=== PATIENT | male | born 1975 | race Hispanic/Latino ===

== ENCOUNTER → 2018-06-25 | Day surgery (SDC) | payer OTHER ==
[~2018-06-25] MED LIST: AMLODIPINE BESY10 MG PO; BIOFLEX TABLET1 EACH; CLARITIN-D 241 EACH PO; DAYQUIL; FENTANYL CITRATE/PF 100MCG/2 ML INJ ONE; FLONASE; GLUCOSAMINE1000 MG; LISINOPRIL10 MG PO; MIDAZOLAM HCL 2 MG/2 ML VIAL ONE; MUCINEX DM ER1 EACH PO; PROPOFOL IV EMULSION 10 MG/ML 50 ML VIAL ONE; [UNRECOGNIZED DRUG - OTHER]
[2018-06-25 09:30] VITALS: BP 122/88
--- NOTE | 2018-06-25 15:50 | Operative Report ---
DATE OF PROCEDURE: 06/25/2018 SURGEON: Thien Gamboa MD PROCEDURE: Esophagogastroduodenoscopy with esophageal dilatation and biopsies. INDICATIONS FOR EGD: Acid reflux, dysphagia, history of H. pylori. MEDICATION: The patient was done under MAC. Please see anesthesiologist's note. PROCEDURE IN DETAIL: With the patient in left lateral decubitus position, flexible fiberoptic Olympus gastroscope was introduced into the esophagus under direct visualization without any difficulty. There was some patchy erythema noted in distal esophagus. The esophagus was dilated to size 52-[place] Cont[place]ras. The scope was then advanced with ease into the stomach. Mucosa overlying the antrum and the body revealed some diffuse erythema and moderate edema and biopsies were obtained and sent to stain for H. pylori. Pylorus was of normal contour and shape, was intubated with ease and the scope was advanced all the way to the second portion of the duodenum. Biopsies were obtained from the proximal second portion and the duodenal bulb to rule out sprue. The scope was then withdrawn back into the stomach and retroflexed and mucosa overlying the fundus and cardia appeared to be within normal limits. The scope was then straightened out. The stomach was decompressed. The scope was subsequently withdrawn. The patient tolerated procedure well. IMPRESSION: 1. Distal esophagitis, mild. 2. Esophagus dilated to size 52-[place] Cont[place]ras. 3. Gastritis, biopsied, biopsies sent to stain for H. pylori. 4. Rule out sprue. PLAN: Follow up histology. Increase Protonix to 40 mg one p.o. a.c. b.i.d. If the patient turns out to be stool positive for H. pylori, we will initiate an alternative antibiotic regimen. Thien Gamboa MD [facility] [place] /[id number] cc: Aixa Moreno MD
== END | disposition home or self-care (01) ==
LOC: OR 07:01
PROVIDERS: ATTEND Internal Medicine Gastroenterology
DX: K21.0 Gastro-esophageal reflux disease with esophagitis (principal); K29.50 Unspecified chronic gastritis without bleeding; B96.81 Helicobacter pylori [H. pylori] as the cause of diseases classified elsewhere; Z01.810 Encounter for preprocedural cardiovascular examination; Z91.018 Allergy to other foods; K29.70 Gastritis, unspecified, without bleeding; R13.10 Dysphagia, unspecified
CPT/HCPCS: 43239; 43450; 93005; J2250; J2704